=== PATIENT | male | born 1945 | race Asian ===

== ENCOUNTER 2017-03-10 12:58 | Emergency (ER) | payer OTHER ==
[2017-03-10 13:14] LABS: ADD MAN DIFF? NO
[2017-03-10 13:19] LABS: WHITE BLOOD COUNT 8.7 10^3/ul (4.8-10.8)
[2017-03-10 13:19] LABS: BASOPHILS % 0.5 % (0.0-2.0); EOSINOPHILS % 0.2 % (0.0-7.0); HEMATOCRIT 47.3 % (42.0-52.0); LYMPHOCYTES # 1.3 10^3/ul (0.8-2.9); LYMPHOCYTES % 15.1 % (15.0-51.0); MEAN CORPUSCULAR HEMOGLOBIN 33.2 pg (29.0-33.0); MEAN CORPUSCULAR HGB CONC 33.8 g/dl (32.0-37.0); MEAN CORPUSCULAR VOLUME 98.1 fl (82.0-101.0); MEAN PLATELET VOLUME 9.5 fl (7.4-10.4); MONOCYTE # 0.8 10^3/ul (0.3-0.9); MONOCYTES % 8.6 % (0.0-11.0); NEUTROPHIL # 6.5 10^3/ul (1.6-7.5); NEUTROPHILS % 74.8 % (39.0-77.0); PLATELET COUNT 185 10^3/UL (140-415); RED BLOOD COUNT 4.82 10^6/ul (4.70-6.10); RED CELL DISTRIBUTION WIDTH 12.5 % (11.5-14.5)
[2017-03-10] MEDS: morphine 4 MG/ML VIAL IV (13:22)
[2017-03-10] MEDS: SOD CHLORIDE 0.9% 500 ML IV (13:22)
[2017-03-10] MEDS: ONDANSETRON 4 MG INJ IV (13:22)
[2017-03-10 13:34] LABS: INR 0.89; PROTIME 12.1 Sec (11.9-14.9); PT RATIO 0.9
[2017-03-10 13:36] LABS: ALANINE AMINOTRANSFERASE 32 IU/L (13-69); ALBUMIN 4.4 g/dl (3.3-4.9); ALBUMIN/GLOBULIN RATIO 1.25; ALKALINE PHOSPHATASE 62 IU/L (42-121); ANION GAP 18 (8-16); ASPARTATE AMINO TRANSFERASE 23 IU/L (15-46); BILIRUBIN,INDIRECT 0.7 mg/dl (0-1.1); BILIRUBIN,TOTAL 0.7 mg/dl (0.2-1.3); BLOOD UREA NITROGEN 16 mg/dl (7-20); CALCIUM 9.7 mg/dl (8.4-10.2); CARBON DIOXIDE 29 mmol/L (21-31); CHLORIDE 97 mmol/L (97-110); CREATININE 1.15 mg/dl (0.61-1.24); GLUCOSE 245 mg/dl (70-220); LIPASE 67 U/L (23-300); POTASSIUM 4.4 mmol/L (3.5-5.1); SODIUM 140 mmol/L (135-144); TOTAL PROTEIN 7.9 g/dl (6.1-8.1)
[2017-03-10 13:48] LABS: TROPONIN-I < 0.012 ng/ml (0.00-0.12)
[2017-03-10] MEDS ORDERED: FENTAnyl 50 MCG/ML VIAL (14:01)
[2017-03-10] MEDS: FENTAnyl 50 MCG/ML VIAL IV (14:07)
[2017-03-10] MEDS: IOHEXOL 300MG/ML 150 ML BTL (14:34)
[2017-03-10] MEDS: SOD CHLORIDE 0.9% 100 ML (14:34)
[2017-03-10 16:48] LABS: URINE BLOOD (Dip) POC Trace-intact (NEGATIVE); URINE KETONES (Dip) POC 1+ (NEGATIVE); URINE LEUKOCYTE EST (Dip) POC Negative (NEGATIVE); URINE NITRITE (Dip) POC Negative (NEGATIVE); URINE TOTAL PROTEIN POC Negative (NEGATIVE)
[2017-03-10] MEDS: CEFTRIAXONE 1 GM/50 ML (PMX) 50 ML IVPB (17:03)
[2017-03-10] MEDS: KETOROLAC 15 MG INJ IV (17:03)
[2017-03-10 18:06] LABS: ADD UMIC NO; UR AMORPHOUS CRYSTAL MODERATE /HPF (NONE SEEN); UR ASCORBIC ACID 20 mg/dL (NEGATIVE); UR BACTERIA FEW /HPF (NONE SEEN); UR BILIRUBIN (Dip) NEGATIVE (NEGATIVE); UR BLOOD (Dip) NEGATIVE (NEGATIVE); UR CLARITY SLIGHTLY CLOUDY (CLEAR); UR COLOR YELLOW (YELLOW); UR GLUCOSE (Dip) 3+ mg/dL (NEGATIVE); UR KETONES (Dip) 1+ mg/dL (NEGATIVE); UR LEUKOCYTE ESTERASE (Dip) NEGATIVE Leu/ul (NEGATIVE); UR NITRITE (Dip) NEGATIVE (NEGATIVE); UR RBC 3 /HPF (0-5); UR SPECIFIC GRAVITY (Dip) 1.032 (1.003-1.030); UR TOTAL PROTEIN (Dip) NEGATIVE (NEGATIVE); UR UROBILINOGEN (Dip) NEGATIVE (NEGATIVE); UR WBC 3 /HPF (0-5)
== END 2017-03-10 18:54 | disposition home or self-care (01) ==
LOC: E/R 12:58
DX: N13.2 Hydronephrosis with renal and ureteral calculous obstruction (principal); M54.5 Low back pain; I45.10 Unspecified right bundle-branch block; I62.00 Nontraumatic subdural hemorrhage, unspecified; N12 Tubulo-interstitial nephritis, not specified as acute or chronic; N23 Unspecified renal colic; E11.9 Type 2 diabetes mellitus without complications; R93.0 Abnormal findings on diagnostic imaging of skull and head, not elsewhere classified
CPT/HCPCS: 36415; 70450; 71045; 74177; 80053; 81001; 81003; 83690; 84484; 85025; 85610; 87086; 93005; 96374; 96375; 99285-25

== ENCOUNTER 2017-03-23 09:48 | Emergency (ER) | payer OTHER | END 2017-03-23 11:43 | disposition left against medical advice (07) | LOC: E/R 09:48 | DX: Z53.21 Procedure and treatment not carried out due to patient leaving prior to being seen by health care provider (principal) ==